=== PATIENT | male | born 2000 | race Caucasian/White ===

== ENCOUNTER 2025-03-09 17:50 | Emergency (ER) | payer SELFPAY ==
[~2025-03-09] VITALS: Ht 175.3 cm; Wt 81.0 kg
[2025-03-09] MEDS: HYDROCODONE/ACETAMINOPHEN 5/325MG TABLET PO ONE (18:05)
[2025-03-09] MEDS: PROPOFOL 200MG/20ML VIAL IV NR (18:43)
[2025-03-09 20:07] VITALS: TEMP 36.9
[2025-03-09] MEDS: AMLODIPINE 10MG TABLET PO NR (21:39)
[2025-03-09 21:48] VITALS: TEMP 98.4; O2SAT 98
[2025-03-09 21:52] VITALS: BP 140/88; PULSE 76; RESP 13; O2SAT 97
== END 2025-03-09 21:54 | disposition home or self-care (01) ==
LOC: ER 17:50
DX: S43.015A Anterior dislocation of left humerus, initial encounter (principal); I10 Essential (primary) hypertension; Y04.0XXA Assault by unarmed brawl or fight, initial encounter; Y93.89 Activity, other specified; Y92.89 Other specified places as the place of occurrence of the external cause; Y99.8 Other external cause status
CPT/HCPCS: 23650; 99152; 99291; 73030; J2704; Z7610 ×2